=== PATIENT | male | born 2000 | race Caucasian/White ===

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

== ENCOUNTER 2020-02-26 13:09 | Emergency (ER) | payer OTHER ==
[2020-02-26 13:22] VITALS: TEMP 99.4
--- NOTE | 2020-02-26 13:48 | ED ---
Eye Problem HPI - General Chief complaint: Eye Problems Stated complaint: vision issues Time Seen by Provider: 02/26/20 13:24 Source: EMS Mode of arrival: EMS Limitations: no limitations - History of Present Illness Initial comments: Patient is a 19-year-old male presents emergency department for vision issues. Patient states he woke up this morning and noticed a curved line that persisted for several hours. Patient states this is not present at the moment. States he also had a concurrent right-sided headache during this time. Does report mild p hotophobia but no nausea or vomiting. He does have history of headaches. He denies any trauma, does not wear contacts. Denies any erythema or pain with extraocular movements. States his mother was concerned for diabetic retinopathy because the patient is obese and diabetes is prevalent in their family history. - Related Data Home Medications Medication Instructions Recorded Confirmed Albuterol Inhaler (Mhu) [Ventolin 2 puff INHALATION RT-Q6H PRN 10/21/13 02/06/18 Inhaler] Albuterol Nebulized [Ventolin 2.5 mg INHALATION RT-Q4H PRN 10/21/13 02/06/18 Nebulized] EPINEPHrine (Auto Inj.) PEDS 0.15 mg IM ONCE PRN 10/21/13 02/06/18 [Epipen Jr] Montelukast Sodium [Singulair] 10 mg PO HS 05/05/17 02/06/18 Sertraline [Zoloft] 50 mg PO HS 05/05/17 02/06/18 Levothyroxine Sodium [Synthroid] 150 mcg PO HS 02/06/18 02/06/18 Sertraline HCl [Zoloft] 25 mg PO HS 02/06/18 02/06/18 Previous Rx's Medication Instructions Recorded Azithromycin [Zithromax Z-pack] 0 mg PO DIRECTED #6 tab 02/06/18 Ibuprofen [Motrin] 600 mg PO Q8HR PRN #24 tab 02/06/18 Ondansetron Odt [Zofran Odt] 4 mg PO Q8HR PRN #10 tab 12/26/19 Allergies Allergy/AdvReac Type Severity Reaction Status Date / Time codeine Allergy Rash/Hives Verified 12/26/19 21:32 Fish Containing Products Allergy Rash/Hives Verified 12/26/19 21:32 Penicillins Allergy Rash/Hives Verified 12/26/19 21:32 shellfish derived [Shellfish] Allergy Unknown Verified 12/26/19 21:32 feathers Allergy Anaphylaxis Uncoded 12/26/19 21:32 Nuts Allergy Rash/Hives Uncoded 12/26/19 21:32 Review of Systems ROS Statement: Those systems with pertinent positive or pertinent negative responses have been documented in the HPI. ROS Other: All systems not noted in ROS Statement are negative. Past Medical History Past Medical History: Asthma, Pneumonia Additional Past Medical History / Comment(s): depression History of Any Multi-Drug Resistant Organisms: None Reported Past Surgical History: Adenoidectomy, Ear Surgery, Tonsillectomy Past Anesthesia/Blood Transfusion Reactions: No Reported Reaction Past Psychological History: Depression Smoking Status: Never smoker Past Alcohol Use History: None Reported Past Drug Use History: None Reported - Past Family History Mother Additional Family Medical History / Comment(s): psudotumor cerbrea. medulary sponge kidney. miltral valve prolapse General Exam Limitations: no limitations General appearance: alert, in no apparent distress, obese Head exam: Present: atraumatic, normocephalic, normal inspection Eye exam: Present: normal appearance, PERRL, EOMI. Absent: scleral icterus, conjunctival injection, nystagmus, periorbital swelling, periorbital tenderness, other (No pain with extraocular movements.) Pupils: Present: normal accommodation, other (Limited ophthalmic examination is unremarkable.) ENT exam: Present: normal exam, normal oropharynx, mucous membranes moist, TM's normal bilaterally, normal external ear exam Neck exam: Present: normal inspection, full ROM. Absent: tenderness, meningismus Respiratory exam: Present: normal lung sounds bilaterally. Absent: respiratory distress, wheezes, rales Cardiovascular Exam: Present: regular rate, normal rhythm, normal heart sounds Extremities exam: Present: normal inspection, full ROM, normal capillary refill, other (+2 ulnar and radial pulses bilateral.). Absent: tenderness, pedal edema, joint swelling, calf tenderness Back exam: Present: normal inspection, full ROM. Absent: tenderness, CVA tenderness (R), CVA tenderness (L) Neurological exam: Present: alert, oriented X3, CN II-XII intact, normal gait Psychiatric exam: Present: normal affect, normal mood. Absent: depressed, agitated Skin exam: Present: warm, dry, intact, normal color Course Vital Signs 02/26/20 02/26/20 13:19 14:43 Temperature 99.4 F Pulse Rate 87 82 Respiratory 19 16 Rate Blood Pressure 130/89 117/81 O2 Sat by Pulse 98 98 Oximetry Medical Decision Making - Medical Decision Making Patient is a 19-year-old male presenting to the emergency department for vision issues. Physical examination reveals no nystagmus or pain with extra tablets. No signs of infection. Ocular pressures are 20 in the left and 16 in the right. Vision acuity is 20/25 bilaterally. He does have a concurrent, right-sided headache since he developed the visual disturbance since this morning. There is a strong family history of migraines. Suspect patient has migraine with aura which is causing him to see the curved lines. Patient did not have any symptoms on evaluation in his visual disturbances have resolved. I advised the patient to follow-up with an hereditary cancer program coordinator. Strict return parameters were thoroughly discussed with patient was understanding and agreeable. Case discussed with physician. Disposition Clinical Impression: Migraine with aura Disposition: HOME SELF-CARE Condition: Stable Instructions (If sedation given, give patient instructions): Migraine Headache (ED) Additional Instructions: Follow-up with an hereditary cancer program coordinator. Return to emergency department if symptoms worsen. Is patient prescribed a controlled substance at d/c from ED?: No Referrals: Erasmo Castanon Jr, DO [Primary Care Provider] - 1-2 days Deborah Hendrickson MD [STAFF PHYSICIAN] - 1-2 days Time of Disposition: 14:32
[2020-02-26 14:44] VITALS: BP 117/81; PULSE 82; RESP 16
== END 2020-02-26 14:44 | disposition home or self-care (01) ==
LOC: EC 13:09
DX: G43.109 Migraine with aura, not intractable, without status migrainosus (principal); J45.909 Unspecified asthma, uncomplicated; F32.9 Major depressive disorder, single episode, unspecified; Z79.899 Other long term (current) drug therapy; Z79.890 Hormone replacement therapy; Z88.5 Allergy status to narcotic agent; Z91.013 Allergy to seafood; Z88.0 Allergy status to penicillin; Z91.018 Allergy to other foods; Z91.048 Other nonmedicinal substance allergy status; Z98.890 Other specified postprocedural states
CPT/HCPCS: 99284

== ENCOUNTER 2020-09-10 15:57 | Emergency (ER) | payer OTHER ==
[2020-09-10 16:32] VITALS: BP 131/84; PULSE 88; RESP 16; TEMP 97.9
[2020-09-10] MEDS ORDERED: IBUPROFEN 600 MG TAB PO STA (16:56)
--- NOTE | 2020-09-10 17:15 | XR ---
EXAMINATION TYPE: XR chest 2V DATE OF EXAM: 09/10/2020 COMPARISON: 06/21/2017 HISTORY: Chest pain TECHNIQUE: 2 views FINDINGS: Heart and mediastinum are normal. Lungs are clear. Diaphragm is normal. Bony thorax appears normal. IMPRESSION: Normal chest. No change.
--- NOTE | 2020-09-10 17:17 | XR ---
EXAMINATION TYPE: XR shoulder complete RT DATE OF EXAM: 09/10/2020 COMPARISON: NONE HISTORY: Shoulder pain TECHNIQUE: 3 views FINDINGS: I see no fracture nor dislocation. Joint spaces are normal. There are no pathologic calcifi cations. IMPRESSION: Negative right shoulder exam.
--- NOTE | 2020-09-10 17:50 | ED ---
General Adult HPI - General Chief complaint: Extremity Problem,Nontraumatic Stated complaint: r shoulder pain Time Seen by Provider: 09/10/20 16:46 Source: patient, RN notes reviewed Mode of arrival: ambulatory Limitations: no limitations - History of Present Illness Initial comments: 20-year-old male with a past medical history of asthma, depression presents to the emergency room for a chief complaint of right shoulder pain. Patient reports that he has had right shoulder pain for about 3 days. 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 Patient states the pain worsens with any type of movement. States it is painful to lift his arm. Patient states he took Motrin a few days ago but has otherwise not taken anything.Patient has no other complaints at this time including shortness of breath, chest pain, abdominal pain, nausea or vomiting, headache, or visual changes. - Related Data Home Medications Medication Instructions Recorded Confirmed Albuterol Inhaler (Mhu) [Ventolin 2 puff INHALATION RT-Q6H PRN 10/21/13 02/06/18 Inhaler] Albuterol Nebulized [Ventolin 2.5 mg INHALATION RT-Q4H PRN 10/21/13 02/06/18 Nebulized] EPINEPHrine (Auto Inj.) PEDS 0.15 mg IM ONCE PRN 10/21/13 02/06/18 [Epipen Jr] Montelukast Sodium [Singulair] 10 mg PO HS 05/05/17 02/06/18 Sertraline [Zoloft] 50 mg PO HS 05/05/17 02/06/18 Levothyroxine Sodium [Synthroid] 150 mcg PO HS 02/06/18 02/06/18 Sertraline HCl [Zoloft] 25 mg PO HS 02/06/18 02/06/18 Previous Rx's Medication Instructions Recorded Azithromycin [Zithromax Z-pack] 0 mg PO DIRECTED #6 tab 02/06/18 Ibuprofen [Motrin] 600 mg PO Q8HR PRN #24 tab 02/06/18 Ondansetron Odt [Zofran Odt] 4 mg PO Q8HR PRN #10 tab 12/26/19 Allergies Allergy/AdvReac Type Severity Reaction Status Date / Time codeine Allergy Rash/Hives Verified 09/10/20 16:30 Fish Containing Products Allergy Rash/Hives Verified 09/10/20 16:30 Penicillins Allergy Rash/Hives Verified 09/10/20 16:30 shellfish derived [Shellfish] Allergy Unknown Verified 09/10/20 16:30 feathers Allergy Anaphylaxis Uncoded 09/10/20 16:30 Nuts Allergy Rash/Hives Uncoded 09/10/20 16:30 Review of Systems ROS Statement: Those systems with pertinent positive or pertinent negative responses have been documented in the HPI. ROS Other: All systems not noted in ROS Statement are negative. Past Medical History Past Medical History: Asthma, Pneumonia Additional Past Medical History / Comment(s): depression History of Any Multi-Drug Resistant Organisms: None Reported Past Surgical History: Adenoidectomy, Ear Surgery, Tonsillectomy Past Anesthesia/Blood Transfusion Reactions: No Reported Reaction Past Psychological History: Depression Smoking Status: Never smoker Past Alcohol Use History: None Reported Past Drug Use History: None Reported - Past Family History Mother Additional Family Medical History / Comment(s): psudotumor cerbrea. medulary sponge kidney. miltral valve prolapse General Exam Limitations: no limitations General appearance: alert, in no apparent distress Head exam: Present: atraumatic, normocephalic, normal inspection Eye exam: Present: normal appearance, PERRL, EOMI. Absent: scleral icterus, conjunctival injection, periorbital swelling ENT exam: Present: normal exam, mucous membranes moist Neck exam: Present: normal inspection. Absent: tenderness, meningismus, lymphadenopathy Respiratory exam: Present: normal lung sounds bilaterally. Absent: respiratory distress, wheezes, rales, rhonchi, stridor Cardiovascular Exam: Present: regular rate, normal rhythm, normal heart sounds. Absent: systolic murmur, diastolic murmur, rubs, gallop, clicks GI/Abdominal exam: Present: soft, normal bowel sounds. Absent: distended, tenderness, guarding, rebound, rigid Extremities exam: Present: tenderness (Generalized tenderness to posterior shoulder.), normal capillary refill (Capillary refill less than 2 seconds, radial pulse 2+.), other (Sensation intact right upper extremity). Absent: full ROM (Patient has limited range of motion to about about 90 flexion and abduction of the right shoulder which does elicit pain.), joint swelling Neurological exam: Present: alert Course Vital Signs 09/10/20 16:30 Temperature 97.9 F Pulse Rate 88 Respiratory 16 Rate Blood Pressure 131/84 O2 Sat by Pulse 98 Oximetry Medical Decision Making - Medical Decision Making HPI physical exam is documented. Chest x-ray and shoulder x-ray are negative for acute process. The nodes are consistent with musculoskeletal pain given pain worsens with movement, neurovascular status intact. Concern for soft tissue injury. Recommend patient follow-up with orthopedics. He will take Motrin and Tylenol alternating every 3 hours as discussed. He will return here for any worsening symptoms. Disposition Clinical Impression: Shoulder pain, right Disposition: HOME SELF-CARE Condition: Good Instructions (If sedation given, give patient instructions): Shoulder Pain (ED) Additional Instructions: Please take Motrin and Tylenol for pain. Please do gentle stretching of the shoulder with range of motion activities to prevent "frozen shoulder." Please follow-up with orthopedics. Return to the emergency room for any worsening symptoms. Is patient prescribed a controlled substance at d/c from ED?: No Referrals: Erasmo Castanon Jr, DO [Primary Care Provider] - 1-2 days Nena Roberts DO [Doctor of Osteopathic Medicine] - 1-2 days Time of Disposition: 17:49
== END 2020-09-10 17:58 | disposition home or self-care (01) ==
LOC: EC 15:57
DX: M25.511 Pain in right shoulder (principal); J45.909 Unspecified asthma, uncomplicated; F32.9 Major depressive disorder, single episode, unspecified; Z88.0 Allergy status to penicillin
CPT/HCPCS: 71046; 99283

== ENCOUNTER 2020-12-17 01:31 | Emergency (ER) | payer OTHER ==
[2020-12-17 01:39] VITALS: TEMP 98.8
[2020-12-17] MEDS ORDERED: KETOROLAC 15 MG/ML 1 ML VIAL IVP STA (01:51)
[2020-12-17] MEDS ORDERED: SODIUM CHLORIDE 0.9% 1,000 ML IV STA (01:51)
[2020-12-17 02:15] LABS: Basophils # (A) 0.1 k/uL (0-0.2); Basophils % (A) 1 %; Eosinophils # (A) 0.4 k/uL (0-0.7); Eosinophils % (A) 3 %; HCT 46.5 % (39.0-53.0); HGB 15.8 gm/dL (13.0-17.5); Lymphocytes # (A) 2.6 k/uL (1.0-4.8); Lymphocytes % (A) 23 %; MCH 28.8 pg (25.0-35.0); MCHC 33.9 g/dL (31.0-37.0); Mean Platelet Volume 9.2; Monocytes # (A) 0.6 k/uL (0-1.0); Monocytes % (A) 5 %; Neutrophils # (A) 7.6 k/uL (1.3-7.7); Neutrophils % (A) 66 %; Platelet Count 230 k/uL (150-450); RBC 5.47 m/uL (4.30-5.90); RDW 12.7 % (11.5-15.5); WBC 11.4 k/uL (4.0-11.0)
[2020-12-17 02:26] LABS: ALT 25 U/L (4-49); AST 24 U/L (17-59); African American GFR (CKD) >90 (>60 ml/min/1.73 sqM); Albumin 4.7 g/dL (3.5-5.0); Alkaline Phosphatase 93 U/L (38-126); Amylase 50 U/L (30-110); Anion Gap 11 mmol/L; Blood Urea Nitrogen 10 mg/dL (9-20); Calcium 9.5 mg/dL (8.4-10.2); Carbon Dioxide 26 mmol/L (22-30); Chloride 107 mmol/L (98-107); Glucose 91 mg/dL (74-99); Lipase 97 U/L (23-300); Non-African American GFR(CKD) >90 (>60 ml/min/1.73 sqM); Potassium 3.7 mmol/L (3.5-5.1); Sodium 144 mmol/L (137-145); Total Bilirubin 0.2 mg/dL (0.2-1.3); Total Protein 7.2 g/dL (6.3-8.2)
[2020-12-17 02:37] LABS: Appearance,Urine Cloudy (Clear); Bilirubin,Urine Negative (Negative); Blood,Urine Negative (Negative); Calcium Oxalate Crystals,Urine Moderate /hpf; Color,Urine Yellow; Glucose,Urine (UA) Negative (Negative); Hyaline Casts,Urine 1 /lpf (0-2); Ketones,Urine Negative (Negative); Leukocyte Esterase,Urine Negative (Negative); Mucus,Urine Few /hpf; Nitrite,Urine Negative (Negative); PH, Urine 5.5 (5.0-8.0); Protein,Urine Trace (Negative); RBC,Urine 3 /hpf (0-5); Specific Gravity,Urine 1.033 (1.001-1.035); Urobilinogen,Urine <2.0 mg/dL (<2.0); WBC,Urine 2 /hpf (0-5)
--- NOTE | 2020-12-17 02:44 | CT ---
EXAMINATION TYPE: CT abdomen pelvis w con DATE OF EXAM: 12/17/2020 COMPARISON: 02/06/2018 HISTORY: RUQ pain CT DLP: 2301.2 mGycm Automated exposure control for dose reduction was used. CONTRAST: Performed with IV Contrast, patient injected with 100 mL of Isovue 300. The lung bases are clear. There is no pleural effusion. Heart size is normal. There is no pericardial effusion liver spleen stomach pancreas gallbladder appear normal. Bile ducts are not dilated. There is no adrenal mass. Kidneys show satisfactory contrast opacification. There is no hydronephrosi s. Ureters are not dilated. Delayed images show normal renal excretion. There is no retroperitoneal a denopathy. Bladder is almost empty. There is no inguinal hernia. There is no evidence of a pelvic mas s. There is no free fluid in the pelvis. The appendix appears normal. There is no mesenteric edema. There is no ascites or free air. There is no bowel obstruction. The lum bar vertebra have normal alignment. Disc spaces are normal. There is no compression fracture. The bon y pelvis is intact. The hip joints are intact. There is no hip dysplasia. IMPRESSION: Negative CT scan abdomen and pelvis. No adverse change compared to old exam. There is decrease in the small bowel mesenteric lymph nodes compared to old exam.
--- NOTE | 2020-12-17 03:22 | ED ---
General Adult HPI - General Chief complaint: Abdominal Pain Stated complaint: RT flank pain Time Seen by Provider: 12/17/20 01:47 Source: patient, RN notes reviewed Mode of arrival: ambulatory Limitations: no limitations - History of Present Illness Initial comments: 20-year-old male presents to the emergency room for a chief complaint of right upper quadrant pain. Patient states this happens to him about twice every month. Patient states that it usually lasts for about a day. Patient describes the pain as sharp pain that comes and goes. Denies nausea vomiting or diarrhea. Denies fevers or chills. Denies pain worsening after eating. No history of abdominal surgeries.Patient has no other complaints at this time including shortness of breath, chest pain, nausea or vomiting, headache, or visual changes. - Related Data Home Medications Medication Instructions Recorded Confirmed Albuterol Inhaler (Mhu) [Ventolin 2 puff INHALATION RT-Q6H PRN 10/21/13 02/06/18 Inhaler] Albuterol Nebulized [Ventolin 2.5 mg INHALATION RT-Q4H PRN 10/21/13 02/06/18 Nebulized] EPINEPHrine (Auto Inj.) PEDS 0.15 mg IM ONCE PRN 10/21/13 02/06/18 [Epipen Jr] Montelukast Sodium [Singulair] 10 mg PO HS 05/05/17 02/06/18 Sertraline [Zoloft] 50 mg PO HS 05/05/17 02/06/18 Levothyroxine Sodium [Synthroid] 150 mcg PO HS 02/06/18 02/06/18 Sertraline HCl [Zoloft] 25 mg PO HS 02/06/18 02/06/18 Previous Rx's Medication Instructions Recorded Azithromycin [Zithromax Z-pack] 0 mg PO DIRECTED #6 tab 02/06/18 Ibuprofen [Motrin] 600 mg PO Q8HR PRN #24 tab 02/06/18 Ondansetron Odt [Zofran Odt] 4 mg PO Q8HR PRN #10 tab 12/26/19 Allergies Allergy/AdvReac Type Severity Reaction Status Date / Time codeine Allergy Rash/Hives Verified 12/17/20 01:39 Fish Containing Products Allergy Rash/Hives Verified 12/17/20 01:39 Penicillins Allergy Rash/Hives Verified 12/17/20 01:39 shellfish derived [Shellfish] Allergy Unknown Verified 12/17/20 01:39 feathers Allergy Anaphylaxis Uncoded 12/17/20 01:39 Nuts Allergy Rash/Hives Uncoded 12/17/20 01:39 Review of Systems ROS Statement: Those systems with pertinent positive or pertinent negative responses have been documented in the HPI. ROS Other: All systems not noted in ROS Statement are negative. Past Medical History Past Medical History: Asthma, Pneumonia Additional Past Medical History / Comment(s): depression History of Any Multi-Drug Resistant Organisms: None Reported Past Surgical History: Adenoidectomy, Ear Surgery, Tonsillectomy Past Anesthesia/Blood Transfusion Reactions: No Reported Reaction Past Psychological History: Depression Smoking Status: Never smoker Past Alcohol Use History: None Reported Past Drug Use History: None Reported - Past Family History Mother Additional Family Medical History / Comment(s): psudotumor cerbrea. medulary sponge kidney. miltral valve prolapse General Exam Limitations: no limitations General appearance: alert, in no apparent distress Head exam: Present: atraumatic, normocephalic, normal inspection Eye exam: Present: normal appearance ENT exam: Present: normal exam, mucous membranes moist Neck exam: Present: normal inspection, full ROM. Absent: tenderness, meningismus, lymphadenopathy Respiratory exam: Present: normal lung sounds bilaterally. Absent: respiratory distress, wheezes, rales, rhonchi, stridor Cardiovascular Exam: Present: regular rate, normal rhythm, normal heart sounds. Absent: systolic murmur, diastolic murmur, rubs, gallop, clicks GI/Abdominal exam: Present: soft, tenderness (Mild right upper quadrant tenderness. No lower abdominal tenderness. No left upper quadrant tenderness), normal bowel sounds. Absent: distended, guarding, rebound Course Vital Signs 12/17/20 01:34 Temperature 98.8 F Pulse Rate 84 Respiratory 18 Rate Blood Pressure 113/67 O2 Sat by Pulse 97 Oximetry Medical Decision Making - Medical Decision Making Vitals are stable. HPI physical exam is documented. CBC CMP unremarkable. Urinalysis does not show any evidence of infection. CT abdomen and pelvis was negative. No adverse change compared to old exam. Patient was reevaluated and sling much better. Patient is stable for outpatient follow-up with general surgery. Patient will return here for any worsening symptoms. Did discuss that this could be related to gallbladder district to a low-fat diet. - Lab Data Result diagrams: 12/17/20 02:01 12/17/20 02:01 Lab Results 12/17/20 12/17/20 12/17/20 Range/Units 02:01 02:01 02:01 WBC 11.4 H (4.0-11.0) k/uL RBC 5.47 (4.30-5.90) m/uL Hgb 15.8 (13.0-17.5) gm/dL Hct 46.5 (39.0-53.0) % MCV 85.0 (80.0-100.0) fL MCH 28.8 (25.0-35.0) pg MCHC 33.9 (31.0-37.0) g/dL RDW 12.7 (11.5-15.5) % Plt Count 230 (150-450) k/uL MPV 9.2 Neutrophils % 66 % Lymphocytes % 23 % Monocytes % 5 % Eosinophils % 3 % Basophils % 1 % Neutrophils # 7.6 (1.3-7.7) k/uL Lymphocytes # 2.6 (1.0-4.8) k/uL Monocytes # 0.6 (0-1.0) k/uL Eosinophils # 0.4 (0-0.7) k/uL Basophils # 0.1 (0-0.2) k/uL Sodium 144 (137-145) mmol/L Potassium 3.7 (3.5-5.1) mmol/L Chloride 107 (98-107) mmol/L Carbon Dioxide 26 (22-30) mmol/L Anion Gap 11 mmol/L BUN 10 (9-20) mg/dL Creatinine 1.05 (0.66-1.25) mg/dL Est GFR (CKD-EPI)AfAm >90 (>60 ml/min/1.73 sqM) Est GFR (CKD-EPI)NonAf >90 (>60 ml/min/1.73 sqM) Glucose 91 (74-99) mg/dL Calcium 9.5 (8.4-10.2) mg/dL Total Bilirubin 0.2 (0.2-1.3) mg/dL AST 24 (17-59) U/L ALT 25 (4-49) U/L Alkaline Phosphatase 93 (38-126) U/L Total Protein 7.2 (6.3-8.2) g/dL Albumin 4.7 (3.5-5.0) g/dL Amylase 50 (30-110) U/L Lipase 97 (23-300) U/L Urine Color Yellow Urine Appearance Cloudy (Clear) Urine pH 5.5 (5.0-8.0) Ur Specific [place] 1.033 (1.001-1.035) Urine Protein Trace H (Negative) Urine Glucose (UA) Negative (Negative) Urine Ketones Negative (Negative) Urine Blood Negative (Negative) Urine Nitrite Negative (Negative) Urine Bilirubin Negative (Negative) Urine Urobilinogen <2.0 (<2.0) mg/dL Ur Leukocyte Esterase Negative (Negative) Urine RBC 3 (0-5) /hpf Urine WBC 2 (0-5) /hpf Calcium Oxalate Crystal Moderate H (None) /hpf Hyaline Casts 1 (0-2) /lpf Urine Mucus Few H (None) /hpf Disposition Clinical Impression: Abdominal pain Disposition: HOME SELF-CARE Condition: Good Instructions (If sedation given, give patient instructions): Abdominal Pain (ED), Low Fat Diet (ED) Additional Instructions: Please take Motrin and Tylenol for pain. Try a low-fat diet. Follow-up with surgery. Return to the emergency room for any worsening symptoms. Is patient prescribed a controlled substance at d/c from ED?: No Referrals: Henry Pink MD [STAFF PHYSICIAN] - 1-2 days Time of Disposition: 03:21
[2020-12-17 04:01] VITALS: BP 112/62; PULSE 71; RESP 16
== END 2020-12-17 03:56 | disposition home or self-care (01) ==
LOC: EC 01:31
DX: R10.11 Right upper quadrant pain (principal); J45.909 Unspecified asthma, uncomplicated; Z88.0 Allergy status to penicillin; Z88.5 Allergy status to narcotic agent; Z91.013 Allergy to seafood; Z91.048 Other nonmedicinal substance allergy status; Z79.899 Other long term (current) drug therapy
CPT/HCPCS: 36415; 80053; 82150; 83690; 85025; 81001; 74177; 99284; 96374; 96361; J1885; Q9967

== ENCOUNTER 2020-12-21 21:49 | Emergency (ER) | payer OTHER ==
[2020-12-21 22:05] VITALS: BP 143/85; PULSE 90; RESP 18; TEMP 98.4
[2020-12-21] MEDS ORDERED: ACETAMINOPHEN TAB 325 MG TAB PO STA (22:20)
--- NOTE | 2020-12-21 22:24 | ED ---
Fall HPI - General Chief Complaint: Fall Stated Complaint: IHS- side pain Source: patient Mode of arrival: ambulatory - History of Present Illness Initial Comments: 20-year-old white male, well-nourished and well-appearing presents to the emergency room with complaints of slipping and falling backward onto a bucket last night at work. Patient states that today he woke up and there is some bruising to the left flank. He did not take any Tylenol or Motrin for pain. He denies any shortness of breath or cough. No difficulty in breathing. No hematuria or pain with movement. He states that it is tender to touch only. Complaint: fall -: days(s) (1) Fall From: standing Place Fall Occurred: work Loss of Consciousness: none Prolonged Down Time?: no Symptoms Prior to Fall: none Quality: aching Context: tripped/slipped Associated Symptoms: denies - Related Data Home Medications Medication Instructions Recorded Confirmed Albuterol Inhaler (Mhu) [Ventolin 2 puff INHALATION RT-Q6H PRN 10/21/13 02/06/18 Inhaler] Albuterol Nebulized [Ventolin 2.5 mg INHALATION RT-Q4H PRN 10/21/13 02/06/18 Nebulized] EPINEPHrine (Auto Inj.) PEDS 0.15 mg IM ONCE PRN 10/21/13 02/06/18 [Epipen Jr] Montelukast Sodium [Singulair] 10 mg PO HS 05/05/17 02/06/18 Sertraline [Zoloft] 50 mg PO HS 05/05/17 02/06/18 Levothyroxine Sodium [Synthroid] 150 mcg PO HS 02/06/18 02/06/18 Sertraline HCl [Zoloft] 25 mg PO HS 02/06/18 02/06/18 Previous Rx's Medication Instructions Recorded Azithromycin [Zithromax Z-pack] 0 mg PO DIRECTED #6 tab 02/06/18 Ibuprofen [Motrin] 600 mg PO Q8HR PRN #24 tab 02/06/18 Ondansetron Odt [Zofran Odt] 4 mg PO Q8HR PRN #10 tab 12/26/19 Allergies Allergy/AdvReac Type Severity Reaction Status Date / Time codeine Allergy Rash/Hives Verified 12/21/20 22:04 Fish Containing Products Allergy Rash/Hives Verified 12/21/20 22:04 Penicillins Allergy Rash/Hives Verified 12/21/20 22:04 shellfish derived [Shellfish] Allergy Unknown Verified 12/21/20 22:04 feathers Allergy Anaphylaxis Uncoded 12/21/20 22:04 Nuts Allergy Rash/Hives Uncoded 12/21/20 22:04 Review of Systems ROS Statement: Those systems with pertinent positive or pertinent negative responses have been documented in the HPI. ROS Other: All systems not noted in ROS Statement are negative. Past Medical History Past Medical History: Asthma, Pneumonia Additional Past Medical History / Comment(s): depression History of Any Multi-Drug Resistant Organisms: None Reported Past Surgical History: Adenoidectomy, Ear Surgery, Tonsillectomy Past Anesthesia/Blood Transfusion Reactions: No Reported Reaction Past Psychological History: Depression Smoking Status: Never smoker Past Alcohol Use History: None Reported Past Drug Use History: None Reported - Past Family History Mother Additional Family Medical History / Comment(s): psudotumor cerbrea. medulary sponge kidney. miltral valve prolapse General Exam Limitations: no limitations General appearance: alert, in no apparent distress Head exam: Present: atraumatic, normocephalic, normal inspection Eye exam: Present: normal appearance, PERRL, EOMI. Absent: scleral icterus, conjunctival injection, periorbital swelling Pupils: Present: normal accommodation ENT exam: Present: normal exam, normal oropharynx, mucous membranes moist Neck exam: Present: normal inspection, full ROM. Absent: tenderness, meningismus, lymphadenopathy, thyromegaly Respiratory exam: Present: normal lung sounds bilaterally. Absent: respiratory distress, wheezes, rales, rhonchi, stridor, chest wall tenderness, accessory muscle use, decreased breath sounds, prolonged expiratory Cardiovascular Exam: Present: regular rate, normal rhythm, normal heart sounds. Absent: systolic murmur, diastolic murmur, rubs, gallop, clicks GI/Abdominal exam: Present: soft, normal bowel sounds. Absent: distended, tenderness, guarding, rebound, rigid Extremities exam: Present: normal inspection, full ROM, normal capillary refill. Absent: tenderness, pedal edema, joint swelling, calf tenderness Back exam: Present: normal inspection, full ROM. Absent: CVA tenderness (R), CVA tenderness (L), muscle spasm, paraspinal tenderness, vertebral tenderness Neurological exam: Present: alert, oriented X3, CN II-XII intact Psychiatric exam: Present: normal affect, normal mood Skin exam: Present: warm, dry, intact, normal color, other (Ecchymosis to the left lower back). Absent: rash Course Vital Signs 12/21/20 22:04 Temperature 98.4 F Pulse Rate 90 Respiratory 18 Rate Blood Pressure 143/85 O2 Sat by Pulse 98 Oximetry Medical Decision Making - Medical Decision Making Patient is well-appearing, denies any shortness of breath or cough. He denies any bleeding. There is ecchymosis noted to the left lower back. Patient is morbidly obese. UA shows no blood. Patient states he has no pain other than to palpation at the site of the bruising. He'll be discharged home to follow up with his primary care doctor and directed to return if any worsening symptoms, bleeding or difficulty breathing. Case discussed with Dr. Marie - Lab Data Lab Results 12/21/20 Range/Units 22:38 Urine Color Yellow Urine Appearance Clear (Clear) Urine pH 6.0 (5.0-8.0) Ur Specific [place] 1.021 (1.001-1.035) Urine Protein Negative (Negative) Urine Glucose (UA) Negative (Negative) Urine Ketones Negative (Negative) Urine Blood Negative (Negative) Urine Nitrite Negative (Negative) Urine Bilirubin Negative (Negative) Urine Urobilinogen <2.0 (<2.0) mg/dL Ur Leukocyte Esterase Negative (Negative) Disposition Clinical Impression: Contusion Disposition: HOME SELF-CARE Condition: Good Instructions (If sedation given, give patient instructions): Fall Prevention (ED), Acute Low Back Pain (ED) Additional Instructions: Take Tylenol as needed for pain. Return to the emergency room with any worsening symptoms including fever, shortness of breath or abnormal bleeding. Is patient prescribed a controlled substance at d/c from ED?: No Referrals: Erasmo Castanon Jr, DO [Primary Care Provider] - 1-2 days Time of Disposition: 23:04
[2020-12-21 22:58] LABS: Appearance,Urine Clear (Clear); Bilirubin,Urine Negative (Negative); Blood,Urine Negative (Negative); Color,Urine Yellow; Glucose,Urine (UA) Negative (Negative); Ketones,Urine Negative (Negative); Leukocyte Esterase,Urine Negative (Negative); Nitrite,Urine Negative (Negative); Protein,Urine Negative (Negative); Specific Gravity,Urine 1.021 (1.001-1.035); Urobilinogen,Urine <2.0 mg/dL (<2.0)
== END 2020-12-21 23:17 | disposition home or self-care (01) ==
LOC: EC 21:49
DX: S30.0XXA Contusion of lower back and pelvis, initial encounter (principal); E66.01 Morbid (severe) obesity due to excess calories; J45.909 Unspecified asthma, uncomplicated; Z68.41 Body mass index [BMI] 40.0-44.9, adult; Z88.0 Allergy status to penicillin; Z88.5 Allergy status to narcotic agent; Z91.013 Allergy to seafood; Z91.018 Allergy to other foods; W01.0XXA Fall on same level from slipping, tripping and stumbling without subsequent striking against object, initial encounter; Y92.89 Other specified places as the place of occurrence of the external cause
CPT/HCPCS: 81003; 99283

== ENCOUNTER → 2020-12-22 | Outpatient (CLI) | payer OTHER ==
--- NOTE | 2020-12-22 17:30 | XR ---
EXAMINATION TYPE: XR pelvis AP view DATE OF EXAM: 12/22/2020 COMPARISON: NONE HISTORY: Hip pain TECHNIQUE: Single view FINDINGS: The pelvic ring is intact. Proximal femurs and hip joints are intact. There is no hip dyspl judi. IMPRESSION: Normal pelvis. No fracture.
--- NOTE | 2020-12-22 17:31 | XR ---
EXAMINATION TYPE: XR hand complete LT DATE OF EXAM: 12/22/2020 COMPARISON: NONE HISTORY: Pain TECHNIQUE: 3 views FINDINGS: Metacarpals are intact. I see no fracture nor dislocation. Joint spaces are normal. There a re no erosions. IMPRESSION: Negative left hand exam.
== END | disposition home or self-care (01) ==
LOC: RADXRMAIN 16:51
PROVIDERS: ATTEND Emergency Medicine
DX: S30.0XXA Contusion of lower back and pelvis, initial encounter (principal); S60.222A Contusion of left hand, initial encounter; W01.0XXA Fall on same level from slipping, tripping and stumbling without subsequent striking against object, initial encounter
CPT/HCPCS: 72170

== ENCOUNTER 2021-08-03 05:25 | Emergency (ER) | payer OTHER ==
[2021-08-03 05:36] VITALS: RESP 18; TEMP 98.7
[2021-08-03] MEDS ORDERED: CLINDAMYCIN 150 MG CAP PO STA (05:38)
[2021-08-03] MEDS ORDERED: traMADol 50 MG STARTER PACK 3 TAB BTL PO STA (05:39)
[2021-08-03] MEDS ORDERED: traMADol 50 MG TAB PO STA (05:39)
--- NOTE | 2021-08-03 05:39 | ED ---
ENT HPI - General Chief complaint: Dental/Oral Stated complaint: Dental Pain Time Seen by Provider: 08/03/21 05:31 Source: patient, EMS, RN notes reviewed, old records reviewed Mode of arrival: EMS Limitations: no limitations - History of Present Illness Initial comments: This is a 21-year-old male to the emergency department today. Patient is presented today for evaluation of severe dental pain right rear molar. Patient did pass was worse than. Symptoms progressively worsening overnight. No other complaints no fevers no significant swelling able to eat and drink without difficulty MD complaint: tooth pain -: hour(s) Location: tooth # (Right rear molar) Severity: severe Severity scale (1-10): 10 Quality: aching, sharp Consistency: constant Improves with: none Worsens with: none Context- Dental: history of dental caries, poor dental care Associated Symptoms: toothache - Related Data Home Medications Medication Instructions Recorded Confirmed Albuterol Inhaler (Mhu) [Ventolin 2 puff INHALATION RT-Q6H PRN 10/21/13 02/06/18 Inhaler] Albuterol Nebulized [Ventolin 2.5 mg INHALATION RT-Q4H PRN 10/21/13 02/06/18 Nebulized] EPINEPHrine (Auto Inj.) PEDS 0.15 mg IM ONCE PRN 10/21/13 02/06/18 [Epipen Jr] Montelukast Sodium [Singulair] 10 mg PO HS 05/05/17 02/06/18 Sertraline [Zoloft] 50 mg PO HS 05/05/17 02/06/18 Levothyroxine Sodium [Synthroid] 150 mcg PO HS 02/06/18 02/06/18 Sertraline HCl [Zoloft] 25 mg PO HS 02/06/18 02/06/18 Previous Rx's Medication Instructions Recorded Azithromycin [Zithromax Z-pack] 0 mg PO DIRECTED #6 tab 02/06/18 Ibuprofen [Motrin] 600 mg PO Q8HR PRN #24 tab 02/06/18 Ondansetron Odt [Zofran Odt] 4 mg PO Q8HR PRN #10 tab 12/26/19 clindamycin HCL [Cleocin] 300 mg PO Q6HR #40 cap 08/03/21 Allergies Allergy/AdvReac Type Severity Reaction Status Date / Time codeine Allergy Rash/Hives Verified 12/21/20 22:04 Fish Containing Products Allergy Rash/Hives Verified 12/21/20 22:04 Penicillins Allergy Rash/Hives Verified 12/21/20 22:04 shellfish derived [Shellfish] Allergy Unknown Verified 12/21/20 22:04 feathers Allergy Anaphylaxis Uncoded 12/21/20 22:04 Nuts Allergy Rash/Hives Uncoded 12/21/20 22:04 Review of Systems ROS Statement: Those systems with pertinent positive or pertinent negative responses have been documented in the HPI. ROS Other: All systems not noted in ROS Statement are negative. Past Medical History Past Medical History: Asthma, Pneumonia Additional Past Medical History / Comment(s): depression History of Any Multi-Drug Resistant Organisms: None Reported Past Surgical History: Adenoidectomy, Ear Surgery, Tonsillectomy Past Anesthesia/Blood Transfusion Reactions: No Reported Reaction Past Psychological History: Depression Smoking Status: Never smoker Past Alcohol Use History: None Reported Past Drug Use History: None Reported - Past Family History Mother Additional Family Medical History / Comment(s): psudotumor cerbrea. medulary sponge kidney. miltral valve prolapse General Exam Limitations: no limitations General appearance: alert, in no apparent distress Head exam: Present: atraumatic, normocephalic, normal inspection Eye exam: Present: normal appearance, PERRL, EOMI. Absent: scleral icterus, conjunctival injection, periorbital swelling ENT exam: Present: normal exam, mucous membranes moist Neck exam: Present: normal inspection. Absent: tenderness, meningismus, lymphadenopathy Respiratory exam: Present: normal lung sounds bilaterally. Absent: respiratory distress, wheezes, rales, rhonchi, stridor Cardiovascular Exam: Present: regular rate, normal rhythm, normal heart sounds. Absent: systolic murmur, diastolic murmur, rubs, gallop, clicks GI/Abdominal exam: Present: soft, normal bowel sounds. Absent: distended, tenderness, guarding, rebound, rigid Extremities exam: Present: normal inspection, full ROM, normal capillary refill. Absent: tenderness, pedal edema, joint swelling, calf tenderness Back exam: Present: normal inspection Neurological exam: Present: alert, oriented X3, CN II-XII intact Psychiatric exam: Present: normal affect, normal mood Skin exam: Present: warm, dry, intact, normal color. Absent: rash Course Vital Signs 08/03/21 08/03/21 05:29 06:08 Temperature 98.7 F 98.7 F Pulse Rate 84 78 Respiratory 18 18 Rate Blood Pressure 132/65 128/94 O2 Sat by Pulse 100 98 Oximetry - Reevaluation(s) Reevaluation #1: Medical record is reviewed Patient symptoms are improved here in the emergency department Patient informed of results and questions answered Medical Decision Making - Medical Decision Making 21 male DF presenting today with severe right dental pain and tooth pain. Likely underlying dental abscess. Patient given pain control and antibiotics here and can be discharged home Disposition Clinical Impression: Dental caries, Dental abscess Disposition: HOME SELF-CARE Condition: Good Instructions (If sedation given, give patient instructions): Dental Abscess (ED), Toothache (ED) Prescriptions: clindamycin HCL [Cleocin] 300 mg PO Q6HR #40 cap Is patient prescribed a controlled substance at d/c from ED?: No Referrals: None,Stated [Primary Care Provider] - 1-2 days
[2021-08-03 06:10] VITALS: BP 128/94; PULSE 78
== END 2021-08-03 06:12 | disposition home or self-care (01) ==
LOC: EC 05:25
DX: K02.9 Dental caries, unspecified (principal); K04.7 Periapical abscess without sinus; J45.909 Unspecified asthma, uncomplicated; Z88.5 Allergy status to narcotic agent; Z91.010 Allergy to peanuts; Z91.013 Allergy to seafood; Z88.0 Allergy status to penicillin
CPT/HCPCS: 99282

== ENCOUNTER 2021-12-09 14:40 | Emergency (ER) | payer OTHER ==
[2021-12-09 14:56] VITALS: TEMP 97.8
[2021-12-09] MEDS ORDERED: HYDROmorphone 1 MG/ML 1 ML SYRINGE IVP STA (15:12)
[2021-12-09] MEDS ORDERED: KETOROLAC 15 MG/ML 1 ML VIAL IVP STA (15:19)
--- NOTE | 2021-12-09 15:34 | XR ---
EXAMINATION TYPE: XR knee limited RT DATE OF EXAM: 12/09/2021 CLINICAL HISTORY: Recent fall injury with pain TECHNIQUE: Frontal and lateral views of the right knee are obtained. COMPARISON: None. FINDINGS: There is no acute displaced fracture evident in right knee. Perhaps slight lateral positio rosi of the patella relative to distal femur on frontal view. Tiny spur posterior inferior patella. T he overlying soft tissue appears unremarkable. IMPRESSION: There is no acute displaced fracture in the right knee. If there is concern for lateral patellar subluxation further investigation with additional sunrise view may be beneficial.
--- NOTE | 2021-12-09 15:34 | ED ---
Lower Extremity Injury HPI - General Chief Complaint: Extremity Injury, Lower Stated Complaint: [facility] - rt knee injury Time Seen by Provider: 12/09/21 14:44 Source: patient, EMS, RN notes reviewed Mode of arrival: EMS Limitations: no limitations - History of Present Illness Initial Comments: 21-year-old male presents emergency Department with chief complaint right knee injury. Patient states he felt a pop while at work. Patient states that there is a deformity to it. Patient states he's had something similar happen but never stay out. Patient offers no complaints. Patient was given pain meds prior to arrival. - Related Data Home Medications Medication Instructions Recorded Confirmed Albuterol Inhaler [Ventolin 2 puff INHALATION RT-Q6H PRN 10/21/13 02/06/18 Inhaler] Albuterol Nebulized [Ventolin 2.5 mg INHALATION RT-Q4H PRN 10/21/13 02/06/18 Nebulized] EPINEPHrine (Auto Inj.) PEDS 0.15 mg IM ONCE PRN 10/21/13 02/06/18 [Epipen Jr] Montelukast Sodium [Singulair] 10 mg PO HS 05/05/17 02/06/18 Sertraline [Zoloft] 50 mg PO HS 05/05/17 02/06/18 Levothyroxine Sodium [Synthroid] 150 mcg PO HS 02/06/18 02/06/18 Sertraline HCl [Zoloft] 25 mg PO HS 02/06/18 02/06/18 Previous Rx's Medication Instructions Recorded Azithromycin [Zithromax Z-pack] 0 mg PO DIRECTED #6 tab 02/06/18 Ibuprofen [Motrin] 600 mg PO Q8HR PRN #24 tab 02/06/18 Ondansetron Odt [Zofran Odt] 4 mg PO Q8HR PRN #10 tab 12/26/19 clindamycin HCL [Cleocin] 300 mg PO Q6HR #40 cap 08/03/21 Ibuprofen [Motrin] 600 mg PO Q8HR PRN #20 tab 12/09/21 Allergies Allergy/AdvReac Type Severity Reaction Status Date / Time codeine Allergy Rash/Hives Verified 12/21/20 22:04 Fish Containing Products Allergy Rash/Hives Verified 12/21/20 22:04 Penicillins Allergy Rash/Hives Verified 12/21/20 22:04 shellfish derived [Shellfish] Allergy Unknown Verified 12/21/20 22:04 feathers Allergy Anaphylaxis Uncoded 12/21/20 22:04 Nuts Allergy Rash/Hives Uncoded 12/21/20 22:04 Review of Systems ROS Statement: Those systems with pertinent positive or pertinent negative responses have been documented in the HPI. ROS Other: All systems not noted in ROS Statement are negative. Past Medical History Past Medical History: Asthma, Pneumonia, Thyroid Disorder Additional Past Medical History / Comment(s): depression, hypothyroidism History of Any Multi-Drug Resistant Organisms: None Reported Past Surgical History: Adenoidectomy, Ear Surgery, Tonsillectomy Past Anesthesia/Blood Transfusion Reactions: No Reported Reaction Past Psychological History: Depression Smoking Status: Never smoker Past Alcohol Use History: None Reported Past Drug Use History: None Reported - Past Family History Mother Additional Family Medical History / Comment(s): psudotumor cerbrea. medulary sponge kidney. miltral valve prolapse General Exam Limitations: no limitations General appearance: alert, in no apparent distress Respiratory exam: Present: normal lung sounds bilaterally. Absent: respiratory distress, wheezes, rales, rhonchi, stridor Cardiovascular Exam: Present: regular rate, normal rhythm, normal heart sounds. Absent: systolic murmur, diastolic murmur, rubs, gallop, clicks Extremities exam: Present: other (Right knee lateral patellar dislocation noted, neurovascular intact) Course Vital Signs 12/09/21 14:51 Temperature 97.8 F Pulse Rate 89 Respiratory 20 Rate Blood Pressure 80/49 O2 Sat by Pulse 100 Oximetry Procedures - Orthopedic Joint Reduction Joint #1 Consent Obtained: verbal consent, emergent situation Side: right Joint Reduction Location: knee/patella (Patellar) Technique Used: direct manipulation Post-Reduction Neuro Exam: intact Post-Reduction Vascular Exam: intact Post Reduction X-Ray Obtained: Yes Post Reduction X-Ray Results: reduced Splint Applied: Yes Patient Tolerated Procedure: well, no complications Medical Decision Making - Medical Decision Making Patient had patellar knee dislocation which was reduced in the emergency department. Patient's neurovascular intact visits in knee immobilizer follow-up with orthopedics return parameters were discussed. Disposition Clinical Impression: Dislocation of right patella Disposition: HOME SELF-CARE Condition: Stable Instructions (If sedation given, give patient instructions): Patellar Dislocation (ED) Additional Instructions: Please return to the Emergency Department if symptoms worsen or any other concerns. Prescriptions: Ibuprofen [Motrin] 600 mg PO Q8HR PRN #20 tab PRN Reason: Pain Is patient prescribed a controlled substance at d/c from ED?: No Referrals: Devin Navarrete MD [Primary Care Provider] - 1-2 days Jensen Morelos MD [STAFF PHYSICIAN] - 1-2 days Time of Disposition: 15:38
[2021-12-09 16:05] VITALS: BP 134/72; PULSE 99; RESP 15
== END 2021-12-09 16:04 | disposition home or self-care (01) ==
LOC: EC 14:40
DX: S83.004A Unspecified dislocation of right patella, initial encounter (principal); J45.909 Unspecified asthma, uncomplicated; E03.9 Hypothyroidism, unspecified; F32.A Depression, unspecified; Z79.51 Long term (current) use of inhaled steroids; Z79.890 Hormone replacement therapy; Z79.899 Other long term (current) drug therapy; X50.1XXA Overexertion from prolonged static or awkward postures, initial encounter; Y99.0 Civilian activity done for income or pay
CPT/HCPCS: 73560; 27560; 99283; 96374; 96375; L1830; J1170; J1885